=== PATIENT | female | born 1950 | race Caucasian/White ===

== ENCOUNTER 2020-05-22 08:48 | Outpatient (CLI) | payer MEDICARE, BC, SELFPAY ==
--- NOTE | ~2020-05-22 | DEXA_ITS ---
Bone Density Report Name: Lydia Sidhu Age: 70 Sex: Female Ethnicity: White Date of : 1950 Indication: osteopenia; height loss; Referring Provider: Shiloh Hutton Study: Bone densitometry was performed. Exam Date: May 22, 2020 Accession number: [id number] Bone Density: Region BMD T-score Z-score Classification AP Spine (L1-L4) 0.842 -1.9 0.2 Osteopenia Femoral Neck (Left) 0.592 -2.3 -0.6 Osteopenia Total Hip (Left) 0.821 -1.0 0.5 Normal Total Hip Bilateral Avg 0.827 -0.9 0.6 Normal Femoral Neck (Right) 0.621 -2.1 -0.3 Osteopenia Total Hip (Right) 0.832 -0.9 0.6 Normal World Health Organization criteria for BMD impression classify patients as: Normal (T-score at or above -1.0), Osteopenia (T-score between -1.0 and -2.5), or Osteoporosis (T-score at or below -2.5). 10-year Fracture Risk(1): Major Osteoporotic Fracture 12% Hip Fracture 2.6% Reported Risk Factors: [place] (), Neck BMD=0.592, BMI=21.3 (1) FRAX(R) Version 3.08. Fracture probability calculated for an untreated patient. Fracture probability may be lower if the patient has received treatment. Previous Exams: Region Exam Age BMD T-score BMD Change BMD Change Date g/cm2 vs Baseline vs Previous AP Spine(L1-L4) 05/22/2020 70 0.842 -1.9 -0.156(-15.6%) 0.026(3.2%)* 10/22/2017 67 0.816 -2.1 -0.181(-18.2%) -0.109(-11.7%) 03/13/2011 61 0.925 -1.1 -0.073(-7.3%)* 0.034(3.9%)* 01/14/2009 59 0.890 -1.4 -0.107(-10.7%) -0.107(-10.7%) 05/23/2005 55 0.997 -0.5 Total Hip(Left) 05/22/2020 70 0.821 -1.0 -0.190(-18.8%) 0.014(1.8%) 10/22/2017 67 0.807 -1.1 -0.205(-20.2%) -0.050(-5.9%)# 03/13/2011 61 0.857 -0.7 -0.154(-15.3%) -0.062(-6.7%)* 01/14/2009 59 0.919 -0.2 -0.093(-9.2%)* -0.093(-9.2%)* 05/23/2005 55 1.012 0.6 Total Hip(Right) 05/22/2020 70 0.832 -0.9 -0.134(-13.8%) 0.013(1.6%) 10/22/2017 67 0.819 -1.0 -0.147(-15.2%) -0.035(-4.1%)# 03/13/2011 61 0.854 -0.7 -0.111(-11.5%) -0.061(-6.7%)* 01/14/2009 59 0.915 -0.2 -0.050(-5.2%)* -0.050(-5.2%)* 05/23/2005 55 0.965 0.2 *Denotes significance at 95% confidence level, LSC for AP Spine = 0.022 g/cm2, LSC for Total Hip = 0.027 g/cm2 Clinical Information Provided by Patient: Has used the following medications: Vitamin D, Calcium Patient maximum height was 65 Menopause Age: 55 Does not regularly consume dairy products Onset of menses at age 12 Number of children 2
--- NOTE | ~2020-05-22 | MM_ITS ---
EXAMINATION: MM screening [facility] BI w suzi HISTORY: Screening mammogram TECHNIQUE: Craniocaudal and mediolateral oblique 3-D tomosynthesis images were obtained and synthetic 2-D images were generated. CAD analysis was submitted and interpreted. COMPARISON: 01/12/2019, 10/22/2017, 10/15/2016 bilateral digital screening mammogram examinations BREAST PARENCHYMAL COMPOSITION: There are scattered areas of fibroglandular density. FINDINGS: Stable fibroglandular asymmetry. Occasional bilateral benign calcifications. There is no ev idence of suspicious mass, calcification, or architectural distortion to suggest malignancy in either breast. There has been no suspicious interval change. IMPRESSION: 1. No mammographic evidence of malignancy. 2. Recommend routine screening mammography in one year. BI-RADS Category 2: Benign finding(s). Reviewed, dictated and finalized at location A.
== END 2020-05-22 08:49 | disposition home or self-care (01) ==
LOC: ANHIMG 08:53
PROVIDERS: PCP Family Medicine; Visit Provider Physician Assistant
DX: Z12.31 Encounter for screening mammogram for malignant neoplasm of breast (principal); M85.88 Other specified disorders of bone density and structure, other site; M85.852 Other specified disorders of bone density and structure, left thigh; M85.851 Other specified disorders of bone density and structure, right thigh
CPT/HCPCS: 77063; 77067; 77080

== ENCOUNTER 2021-06-10 08:17 | Outpatient (CLI) | payer MEDICARE, BC, SELFPAY ==
--- NOTE | ~2021-06-10 | MM_ITS ---
EXAMINATION: MM screening [facility] BI w suzi HISTORY: Screening mammogram TECHNIQUE: Craniocaudal and mediolateral oblique 3-D tomosynthesis images were obtained and synthetic 2-D images were generated. CAD analysis was submitted and interpreted. COMPARISON: 05/22/2020, 01/12/2019, 10/22/2017 bilateral screening mammogram examinations BREAST PARENCHYMAL COMPOSITION: There are scattered areas of fibroglandular density. FINDINGS: Stable fibroglandular asymmetry, more prominent in the upper outer quadrant of the right br east. There is no evidence of suspicious mass, calcification, or architectural distortion to suggest malignancy in either breast. There has been no suspicious interval change. IMPRESSION: 1. No mammographic evidence of malignancy. 2. Recommend routine screening mammography in one year. BI-RADS Category 2: Benign finding(s). Reviewed, dictated and finalized at location A. TED RADIOLOGY TECHNICIAN
== END 2021-06-10 08:18 | disposition home or self-care (01) ==
LOC: ANHIMG 08:18
PROVIDERS: PCP Family Medicine; Visit Provider Physician Assistant
DX: Z12.31 Encounter for screening mammogram for malignant neoplasm of breast (principal)
CPT/HCPCS: 77063; 77067

== ENCOUNTER 2022-07-24 13:36 | Outpatient (CLI) | payer MEDICARE, BC, SELFPAY ==
--- NOTE | ~2022-07-24 | DEXA_ITS ---
Bone Density Report Name: JEFFRY FAULKNER Age: 72 Sex: Female Ethnicity: White Date of : 1950 Indication: osteopenia; height loss; postmenopausal Referring Provider: JASPAL YIN Study: Bone densitometry was performed. Exam Date: July 24, 2022 Accession number: [id number] Bone Density: Region BMD T-score Z-score Classification AP Spine(L1-L4) 0.833 -1.9 0.3 Osteopenia Femoral Neck (Left) 0.585 -2.4 -0.5 Osteopenia Total Hip (Left) 0.804 -1.1 0.5 Osteopenia Femoral Neck (Right) 0.617 -2.1 -0.2 Osteopenia Total Hip (Right) 0.786 -1.3 0.3 Osteopenia Total Hip Mean 0.795 -1.2 0.4 Osteopenia World Health Organization criteria for BMD impression classify patients as: Normal (T-score at or above -1.0), Osteopenia (T-score between -1.0 and -2.5), or Osteoporosis (T-score at or below -2.5). 10-year Fracture Risk(1): Major Osteoporotic Fracture 12% Hip Fracture 3.2% Reported Risk Factors: [place] (), Neck BMD=0.585, BMI=19.2 (1) FRAX(R) Version 3.08. Fracture probability calculated for an untreated patient. Fracture probability may be lower if the patient has received treatment. Previous Exams: Region Exam Age BMD T-score BMD Change BMD Change Date g/cm2 vs Baseline vs Previous AP Spine (L1-L4) 07/24/2022 72 0.833 -1.9 0.017 (2.1%) -0.008 (-1.0%) 05/22/2020 70 0.842 -1.9 0.026 (3.2%)* 0.026 (3.2%)* 10/22/2017 67 0.816 -2.1 Total Hip(Left) 07/24/2022 72 0.804 -1.1 -0.003 (-0.4%) -0.018 (-2.2%) 05/22/2020 70 0.821 -1.0 0.014 (1.8%) 0.014 (1.8%) 10/22/2017 67 0.807 -1.1 Total Hip(Right) 07/24/2022 72 0.786 -1.3 -0.033 (-4.0%) -0.046 (-5.5%) 05/22/2020 70 0.832 -0.9 0.013 (1.6%) 0.013 (1.6%) 10/22/2017 67 0.819 -1.0 *Denotes significance at 95% confidence level, LSC for AP Spine = 0.022 g/cm2, LSC for Total Hip = 0.027 g/cm2 Clinical Information Provided by Patient: Has used the following medications: Vitamin D, Calcium Patient maximum height was 65 Menopause Age: 55 Drinks caffeinated beverages Onset of menses at age 11 Number of children 2 Missed period for more than 6 months in a row Impression: The patient has low bone mass, based on the Left Femoral Neck T-score. The patient has an estimated ten-year risk of hip fracture of 3.2% and an estimated ten-year risk of major fracture of 12%, based on the WHO FRAX algorithm. The BMD for the To
--- NOTE | ~2022-07-24 | MM_ITS ---
EXAMINATION: MM screening [facility] BI w suzi HISTORY: Screening TECHNIQUE: Craniocaudal and mediolateral oblique 3-D tomosynthesis images were obtained and synthetic 2-D images were generated. CAD analysis was submitted and interpreted. COMPARISON: Comparison to multiple prior studies sequentially, with oldest reviewed study dated 01/2016. BREAST PARENCHYMAL COMPOSITION: There are scattered areas of fibroglandular density. FINDINGS: There is no evidence of suspicious mass, calcification, or architectural distortion to sugg est malignancy in either breast. There has been no suspicious interval change. IMPRESSION: 1. No mammographic evidence of malignancy. 2. Recommend routine screening mammography in one year. BI-RADS Category 1: Negative Reviewed, dictated and finalized at location A. LE DISPLAY PREPARER
== END 2022-07-24 13:37 | disposition home or self-care (01) ==
LOC: ANHIMG 13:37
PROVIDERS: PCP Family Medicine; Visit Provider Physician Assistant
DX: Z12.31 Encounter for screening mammogram for malignant neoplasm of breast (principal); Z78.0 Asymptomatic menopausal state; M85.88 Other specified disorders of bone density and structure, other site; M85.852 Other specified disorders of bone density and structure, left thigh; M85.851 Other specified disorders of bone density and structure, right thigh
CPT/HCPCS: 77063; 77067; 77080

== ENCOUNTER 2023-12-07 08:41 | Outpatient (CLI) | payer MEDICARE, BC, SELFPAY ==
--- NOTE | ~2023-12-07 | MM_ITS ---
EXAMINATION: MM screening [facility] BI w suzi HISTORY: Screening mammogram TECHNIQUE: Craniocaudal and mediolateral oblique 3-D tomosynthesis images were obtained and synthetic 2-D images were generated. CAD analysis was submitted and interpreted. COMPARISON: 07/24/2022, 06/10/2021, 05/22/2020 bilateral screening mammogram examinations BREAST PARENCHYMAL COMPOSITION: There are scattered areas of fibroglandular density. FINDINGS: Stable mild fibroglandular asymmetry. There is no evidence of suspicious mass, calcificatio n, or architectural distortion to suggest malignancy in either breast. There has been no suspicious i nterval change. IMPRESSION: 1. No mammographic evidence of malignancy. 2. Recommend routine screening mammography in one year. BI-RADS Category 1: Negative Reviewed, dictated and finalized at location B.
== END 2023-12-07 08:42 | disposition home or self-care (01) ==
PROVIDERS: PCP Family Medicine; Visit Provider Family Medicine
DX: Z12.31 Encounter for screening mammogram for malignant neoplasm of breast (principal)
CPT/HCPCS: 77063; 77067

== ENCOUNTER 2024-03-22 14:00 | Outpatient (CLI) | payer MEDICARE, BC, SELFPAY ==
[2024-03-22 14:17] LABS: Basophils Percent Auto 1.4 % (0.2-1.2); Eosinophils Absolute Auto 0.1 K/mm3 (0-0.3); Eosinophils Percent Auto 3.2 % (0-4.4); Hematocrit 38.2 % (37.0-47.0); Hemoglobin 12.2 g/dL (12.0-15.0); Lymphocytes Absolute Auto 1.27 K/mm3 (0.9-3.2); Lymphocytes Percent Auto 45.7 % (18.3-44.2); Mean Corpuscular HGB Conc 31.9 g/dl (32-36); Mean Corpuscular Hemoglobin 29.8 pg (26-34); Mean Corpuscular Volume 93.4 fl (80-100); Mean Platelet Volume 9.7 fl (7.4-10.4); Monocytes Absolute Auto 0.4 K/mm3 (0.1-0.6); Monocytes Percent Auto 13.7 % (2.6-8.5); Platelet Count Result 187 k/mm3 (150-375); Red Blood Count 4.09 M/mm3 (4.2-5.4); Red Cell Distribution Width 13.1 % (11.5-14.5); White Blood Count 2.8 K/mm3 (4.5-10.0)
[2024-03-22 19:28] LABS: Iron 75 ug/dL (37-170)
[2024-03-22 19:33] LABS: Alanine Aminotransferase 21 U/L (6-35); Albumin Level 4.3 g/dL (3.5-5.1); Alkaline Phosphatase 63 U/L (38-126); Anion Gap 8 mmol/L (4-12); Aspartate Amino Transferase 43 U/L (14-36); Bilirubin,Total 0.4 mg/dL (0.2-1.3); Blood Urea Nitrogen 17 mg/dL (7-17); Calcium 9.3 mg/dL (8.4-10.2); Carbon Dioxide 30 mmol/L (22-30); Chloride 97 mmol/L (98-107); Estimated Glomerular Filt Rate > 60; Glucose 85 mg/dL (65-110); Potassium 4.5 mmol/L (3.4-5.0); Sodium 135 mmol/L (137-145)
[2024-03-22 19:37] LABS: Percent Iron Saturation 20 % (20-50)
[2024-03-22 20:45] LABS: Folic Acid > 20.0 ng/mL (2.76->20)
[2024-03-24 11:29] LABS: Anti Nuclear Antibody Pattern Nuclear, Homogeneous
[2024-03-25 05:19] LABS: Methylmalonic Acid 200 nmol/L (69-390)
== END 2024-03-22 14:01 | disposition home or self-care (01) ==
LOC: ANHLAB 14:02
PROVIDERS: PCP Family Medicine; Visit Provider Internal Medicine Hematology & Oncology
DX: D70.9 Neutropenia, unspecified (principal); D63.8 Anemia in other chronic diseases classified elsewhere
CPT/HCPCS: 36415; 80053; 82607; 82728; 82746; 83540; 83550; 83921; 85025; 86038; 86039; 88184

== ENCOUNTER 2024-04-06 14:14 | Outpatient (CLI) | payer MEDICARE, BC, SELFPAY ==
--- NOTE | ~2024-04-06 | US_ITS ---
EXAMINATION: US abdomen complete DATE: 04/06/2024 14:53 INDICATION: Neutropenia. TECHNIQUE: Multiple grayscale and Doppler ultrasound images of the abdomen were obtained. COMPARISON: None FINDINGS: The visualized portions of the abdomen, body, and tail of the pancreas are normal. Abdomina l aorta is normal in caliber. Inferior vena cava is normal. The liver is normal without focal lesion. There is normal flow in main portal vein. The gallbladder is normal in size and contains gallstones. No gallbladder wall thickening or sonographic Harris sign. The common duct is normal and measures 3 mm. The kidneys are normal in size. The spleen is normal in size. IMPRESSION: 1. Cholelithiasis. No evidence of acute cholecystitis. Reviewed, dictated and finalized at location A.
== END 2024-04-06 14:15 | disposition home or self-care (01) ==
LOC: ANHIMG 14:18
PROVIDERS: PCP Family Medicine; Visit Provider Internal Medicine Hematology & Oncology
DX: D70.9 Neutropenia, unspecified (principal); K80.20 Calculus of gallbladder without cholecystitis without obstruction
CPT/HCPCS: 76700

== ENCOUNTER 2024-07-27 08:14 | Outpatient (CLI) | payer MEDICARE, BC, SELFPAY ==
--- NOTE | ~2024-07-27 | DEXA_ITS ---
Bone Density Report Name: JEFFRY FAULKNER Age: 74 Sex: Female Ethnicity: White Date of : 1950 Indication: osteopenia; height loss; Referring Provider: ELEANOR SPANN Study: Bone densitometry was performed. Exam Date: July 27, 2024 Accession number: [id number] Bone Density: Region BMD T-score Z-score Classification AP Spine(L1-L4) 0.811 -2.1 0.2 Osteopenia Femoral Neck (Left) 0.608 -2.2 -0.2 Osteopenia Total Hip (Left) 0.738 -1.7 0.0 Osteopenia Femoral Neck (Right) 0.596 -2.3 -0.3 Osteopenia Total Hip (Right) 0.717 -1.8 -0.1 Osteopenia Total Hip Mean 0.727 -1.8 -0.1 Osteopenia World Health Organization criteria for BMD impression classify patients as: Normal (T-score at or above -1.0), Osteopenia (T-score between -1.0 and -2.5), or Osteoporosis (T-score at or below -2.5). 10-year Fracture Risk(1): Major Osteoporotic Fracture 6.7% Hip Fracture 1.9% Reported Risk Factors: [place] (), Neck BMD=0.596, BMI=18.0 (1) FRAX(R) Version 3.08. Fracture probability calculated for an untreated patient. Fracture probability may be lower if the patient has received treatment. Previous Exams: Region Exam Age BMD T-score BMD Change BMD Change Date g/cm2 vs Baseline vs Previous AP Spine (L1-L4) 07/27/2024 74 0.811 -2.1 -0.005 (-0.6%) -0.022 (-2.7%) 07/24/2022 72 0.833 -1.9 0.017 (2.1%) -0.008 (-1.0%) 05/22/2020 70 0.842 -1.9 0.026 (3.2%)* 0.026 (3.2%)* 10/22/2017 67 0.816 -2.1 Total Hip(Left) 07/27/2024 74 0.738 -1.7 -0.069 (-8.6%) -0.066 (-8.2%) 07/24/2022 72 0.804 -1.1 -0.003 (-0.4%) -0.018 (-2.2%) 05/22/2020 70 0.821 -1.0 0.014 (1.8%) 0.014 (1.8%) 10/22/2017 67 0.807 -1.1 Total Hip(Right) 07/27/2024 74 0.717 -1.8 -0.102 (-12.5% -0.069 (-8.8%) 07/24/2022 72 0.786 -1.3 -0.033 (-4.0%) -0.046 (-5.5%) 05/22/2020 70 0.832 -0.9 0.013 (1.6%) 0.013 (1.6%) 10/22/2017 67 0.819 -1.0 *Denotes significance at 95% confidence level, LSC for AP Spine = 0.022 g/cm2, LSC for Total Hip = 0.027 g/cm2 # Denotes dissimilar scan types or analysis methods Clinical Information Provided by Patient: Has used the following medications: Vitamin D, Calcium Patient maximum height was 65 Menopause Age: 55 Drinks caffeinated beverages Onset of menses at age 11 Number of children 2 Missed period for more than 6 months in a row Impression: The patient has low bone mass, based on the Right Femoral Neck T-score. The patient has an estimated ten-year risk of hip fracture of 1.9% and an estimated ten-year risk of major fracture of 6.7%, based on the WHO FRAX algorithm. No significant bone loss was observed. Discussion: BONE DENSITY IS LOW AT ONE OR MORE SKELETAL SITES. This patient's lowest T-score is low at one or more skeletal sites. It meets the World Health Organization's (WHO) criteria for ?low bone mass? (T-score between -1.0 and -2.5). The patient's 10-year risk of fracture as calculated by FRAX is less than the threshold where pharmacological therapy is recommended by the National Osteoporosis Foundation (NOF). However, all treatment decisions require clinical judgment and consideration of individual patient factors, including patient preferences, comorbidities, previous drug use, risk factors not captured in the FRAX model (e.g., frailty, falls, vitamin D deficiency, increased bone turnover, interval significant decline in bone density) and possible under or overestimation of fracture risk by FRAX. The patient should follow a healthful lifestyle (good nutrition with adequate calcium and vitamin D, and appropriate weight-bearing exercise). Follow-Up: Consider repeating this study in 2 to 3 years to reassess this patient's status, or sooner if there is some new clinical indication. Reported by: FAB on 07/27/2024 8:43:00 AM. Reviewed, dictated and finalized at location A.
--- OUTSIDE RECORDS SUMMARY | 2024-08-03 13:11 | XMS_ITS | Encounter Summary ---
Author Organization [facility] Address [address] [place] [address] Care Team Providers Care Travelers' Aid Worker Name Role Phone Unavailable Primary Care Provider Unavailabl e Encounter Details Date Type Department Care Team (Late st Contact Info) Description 03/23/2024 External Device Data STL ABSTRACTION Provider, Abstract NO ADDRESS ON FILE Social History Tobacco Use Types Packs/Day Years Used Date Smoking Tobacco: Never Smokeless Tobacco: Never Alcohol Use Standard Drinks/Week Comments Yes 0 (1 standard drink = 0.6 oz pur e alcohol) Socially Sex and Gender Information Value Date Recorded Sex Assigned at Not on file Gender Identity Not on file Sexual Orientation Not on file documented as of this encounter Plan of Treatment Upcoming Encounters Date Type Department Care Team (Late st Contact Info) Description 08/22/2024 11:00 AM GRAB JACK WORKER Office Visit [facility] Oncology and Hematology - Law [address] [facility] [address] [place] [address] Lionel Braga MD [address] [facility] [address] [place] [address] documented as of this encounter Visit Diagnoses Not on filedocumented in this encounter
--- OUTSIDE RECORDS SUMMARY | 2024-08-03 13:11 | XMS_ITS | Encounter Summary ---
Author Organization [facility] [employer] [facility] Address [address] [place] [address] Care Team Providers Care Disc Ruler Operator Name Role Phone Unavailable Primary Care Provider Unavailabl e Encounter Details Date Type Department Care Team (Late st Contact Info) Description 04/13/2024 3:45 PM CDT Telephone Check Up [facility] [place] Oncology and Hematology - Law [address] [facility] [address] [place] [address] Lionel Braga MD [address] [facility] [address] [place] [address] Neutropenia, unspecified type (Primary Dx) Social History Tobacco Use Types Packs/Day Years Used Date Smoking Tobacco: Never Smokeless Tobacco: Never Alcohol Use Standard Drinks/Week Comments Yes 0 (1 standard drink = 0.6 oz pur e alcohol) Socially Sex and Gender Information Value Date Recorded Sex Assigned at Not on file Gender Identity Not on file Sexual Orientation Not on file documented as of this encounter Progress Notes * Lionel Braga MD - 04/13/2024 5:12 PM CDT HEMATOLOGY / ONCOLOGY PROGRESS NOTE Patient Identification: Name: Lydia Sidhu Age: 74 y.o. Sex: female : 1950 DIAGNOSIS Autoimmune leukopenia CURRENT TREATMENT Expectant TREATMENT HISTORY SUBJECTIVE This is a phone visit with patient. She denies any night sweats fever chills. No signs of infection. No other new complaints. Review of system Constitutional: Patient did not mention fevers, sweats, fatigue, malaise, weight loss HEENT: Patient did not mention sinus congestion, hearing or vision problems Respiratory: Patient did not mention cough, dyspnea, wheeze Cardiovascular: Patient did not mention chest pain, exertional chest pressure/discomfort, nausea, syncope, shortness of breath GI: Patient did not mention constipation, diarrhea, dsyphagia, reflux symptoms, vomiting, melena : Patient did not mention dysuria, frequency, incontinence, urgency Integumentary system: no lymphadenopathy, sweats, flushing Musculoskeletal: Patient not mention: myalgia, arthralgia Neurological: Patient did not mention blurry or disturbed vision, numbness/weakness, dizziness Skin: No lumps, bumps or rashes. Objective: Vital signs in last 24 hours: As per nursing note Exam: This is a phone visit [facility] Labs from March 22 showed creatinine 0.7 B12 762 iron 75 saturation 20 DORON positive flow cytometric analysis showed 4% T-cell large granular lymphocytes likely reactive WBC 2.8 hemoglobin 12.2 platelet 1 87,000 ANC 1000 @IMAGEIMP@ Assessment: Plan: There are no problems to display for this patient. 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 Abdominal ultrasound showed no evidence of hepatosplenomegaly. Iron and B12 normal. No further workup is needed. I will repeat labs again in 4 months. If she develop any evidence of autoimmune disease like arthralgia and rash [facility] Hypertension. Stable on lisinopril. ? TOBACCO COUNSELING She is not a tobacco/nicotine user. 04/13/2024 Lionel Braga MD This encounter was completed via audio-only two way synchronous communication. Patient's identity confirmed yes Patient gave verbal consent to have these services billed to their insurance and expressed understanding that co-insurance and deductible may apply: yes Time spent by the provider delivering the care documented in this encounter 20 minutes. documented in this encounter Plan of Treatment Upcoming Encounters Date Type Department Care Team (Late st Contact Info) Description 08/22/2024 11:00 AM SUPERVISOR SHUTTLE VENEERING Office Visit [facility] [place] Oncology and Hematology - Law [address] [facility] [address] [place] [address] Lionel Braga MD [address] [facility] [address] [place] [address] Scheduled Orders Name Type Priority Associated Diagnoses Orde r Schedule CBC WITH DIFFERENTIAL Lab Stat Neutropenia, unspecified type Expected: 08/03/2024, Expires: 04/13/2025 documented as of this encounter Visit Diagnoses Diagnosis Neutropenia, unspecified type- Primary documented in this encounter
--- OUTSIDE RECORDS SUMMARY | 2024-08-03 13:11 | XMS_ITS | Encounter Summary ---
Author Organization [facility] Address [address] [place] [address] Care Team Providers Care Metal Fitters And Machinists Name Role Phone Unavailable Primary Care Provider Unavailabl e Encounter Details Date Type Department Care Team (Late st Contact Info) Description 05/16/2024 External Device Data STL ABSTRACTION Provider, Abstract [...] st Contact Info) Description 08/22/2024 11:00 AM BLOCK MAKING MACHINE OPERATOR Office Visit [facility] Oncology and Hematology - Law [address] [facility] [address] [place] [address] Lionel Braga MD [address] [facility] [address] [place] [address] documented as of this encounter Visit Diagnoses Not on filedocumented in this encounter
--- OUTSIDE RECORDS SUMMARY | 2024-08-03 13:11 | XMS_ITS | Encounter Summary ---
Author Organization [facility] Address [address] [place] [address] Care Team Providers Care Lion Hunter Name Role Phone Unavailable Primary Care Provider Unavailabl e Encounter Details Date Type Department Care Team (Late st Contact Info) Description 04/11/2024 External Device Data STL ABSTRACTION Provider, Abstract [...] st Contact Info) Description 08/22/2024 11:00 AM FURNACE COMBINATION ANALYST Office Visit [facility] Oncology and Hematology - Law [address] [facility] [address] [place] [address] Lionel Braga MD [address] [facility] [address] [place] [address] documented as of this encounter Visit Diagnoses Not on filedocumented in this encounter
--- OUTSIDE RECORDS SUMMARY | 2024-08-03 13:11 | XMS_ITS | Encounter Summary ---
Author Organization [facility] Address [address] [place] [address] Care Team Providers Care Sound Person Name Role Phone Unavailable Primary Care Provider Unavailabl e Reason for Referral * Radiology Services (Routine) - Closed Specialty Diagnoses / Procedures Referred By Contac t Referred To Contact Diagnoses Neutropenia, unspecified type Procedures US ABDOMEN COMPLETE Lionel Braga MD [address] [employer] [address] [place] [id number] [place] [address] Referral ID Status Reason Start Date Expiration Date V isits Requested Visits Authorized [id number] Closed [facility] CTS 03/22/2024 04/22/2025 1 1 Reason for Visit * Reason Comments Establish Care Encounter Details Date Type Department Care Team (Late st Contact Info) Description 03/22/2024 1:30 PM CDT Office Visit [facility] Oncology and Hematology [address] [place] [address] Lionel Braga MD [address] [employer] [address] [place] [address] Neutropenia, unspecified type (Primary Dx); Anemia, chronic disease Social History Tobacco Use Types Packs/Day Years Used Date Smoking Tobacco: Never Smokeless Tobacco: Never Alcohol Use Standard Drinks/Week Comments Yes 0 (1 standard drink = 0.6 oz pur e alcohol) Socially Sex and Gender Information Value Date Recorded Sex Assigned at Not on file Gender Identity Not on file Sexual Orientation Not on file documented as of this encounter Last Filed Vital Signs Vital Sign Reading Time Taken Comments Blood Pressure 124/77 03/22/2024 1:13 PM CDT Pulse 75 03/22/2024 1:13 PM CDT Temperature 36.4 ??C (97.5 ??F) 03/22/2024 1:13 PM CD T Respiratory Rate 15 03/22/2024 1:13 PM CDT Oxygen Saturation 96% 03/22/2024 1:13 PM CDT Inhaled Oxygen Concentration - - Weight 46.7 kg (103 lb) 03/22/2024 1:13 PM CDT Height 160 cm (5' 3 ) 03/22/2024 1:13 PM CDT Body Mass Index 18.25 03/22/2024 1:13 PM CDT documented in this encounter Progress Notes * Lionel Braga MD - 03/22/2024 2:30 PM CDT Hematology-oncology consult Note Requesting Physician Jelly Wang MD Primary Care Physician No primary care provider on file. Problem list There is no problem list on file for this patient. Previous TREATMENT ? Measurable Disease ? Reason for Visit Lydia Sidhu is a 74 y.o. female who was referred for consultation for leukopenia. History of present illness This is a pleasant 74-year-old female with been in great health except history of hypertension and has been taking lisinopril since October 2023. She has a history of leukopenia for more than10 years ago. Review of the previous labs showed low WBC count in 2020 as well. She denies any history of liver disease and malignancy. She denies any frequent infections. Denies any chest pain or phil rtness of breath. She has lost 20 pound weight in last 2 years duration. Her labs done on February 14 showed WBC count of 2.9 with normal hemoglobin and platelet count. She has no other new complaints. Past Medical History Past Medical History: Diagnosis Date Disorder of thyroid Underactive thyroid 1977 Hx of anorexia nervosa Hypertension Surgical History No past surgical history on file. Medications Current Outpatient Medications Medication Sig Dispense Refill lisinopriL (PRINIVIL) 20 mg tablet Take 20 mg by mouth daily. multivit-min/iron/FA/vit K/lut (CENTRUM SILVER WOMEN ORAL) Take by mouth. CALCIUM CARBONATE ORAL Take 60 mg by mouth daily. CALCIUM CARBONATE-VITAMIN D3 ORAL Take 50 mcg by mouth daily. acetaminophen (TYLENOL) 325 mg tablet Take 325 mg by mouth. No current facility-administered medications for this visit. Allergies Allergies Allergen Reactions Sulfa (Sulfonamide Antibiotics) Rash Immunizations: There is no immunization history on file for this patient. Family History Family History Problem Relation Name Age of Onset No Known Problems Father Heart Disease Mother Diabetes Mother Lung Cancer Brother Heart Disease Brother No Known Problems Brother No Known Problems Brother Heart Disease Sister Diabetes Child No Known Problems Child Social History Social History Tobacco Use Smoking status: Never Smokeless tobacco: Never Substance Use Topics Alcohol use: Yes Comment: Socially Review of Systems Constitutional: Patient did not mention fever; no night sweats; no anorexia; no weight loss; no fatique NEENT: Patient did not mention headache; no change in vision; no change in hearing; no sore throat;no dysphagia Respiratory: Patient did not mention shortness of breath; no pleuritic chest pain; no cough; no hemoptysis Cardiac: Patient did not mention cardiac-like chest pain; no palpitations; no orthopnea; no PND; noDOE Breasts: Patient did not mention tenderness; no masses GI: Patient did not mention abdominal pain; no nausea; no vomiting; no diarrhea; no hematochezia; no melena : Patient did not mention dysuria; no frequency; no hesitancy; no hematuria DIRECTOR OF ADMISSIONS: Musculosketetal: Patient did not mention bone pain; no arthralgia; no joint swelling; no myalgia; Skin: Patient did not mention pruritis; no rash; no petechiae; no ecchymoses Endocrine: Patient did not mention polydipsia; no polyuria; no unusual weight gain Neuro: Patient did not mention headache; no change in vision; no sensory changes; no muscle weakness; no confusion; no seizures Psych: Patient did not mention anxiety; no depression; Physical Exam Vitals: As per nursing note Constitutional: Well developed, well nourished, no acute distress, non-toxic appearance Teeth and gum. No signs of infection or swelling. Eyes: PERRL, conjunctiva normal HEENT: Atraumatic, external ears normal, nose normal, oropharynx moist, no pharyngeal exudates. no sinus tenderness Neck- normal range of motion, no tenderness, supple Respiratory: No respiratory distress, normal breath sounds, no rales, no wheezing Cardiovascular: Normal rate, normal rhythm, no murmurs, no gallops, no rubs GI: Soft, nondistended, normal bowel sounds, nontender, no splenomegaly, no hepatomegaly, no mass, no rebound, no guarding : No costovertebral angle tenderness Musculoskeletal: No edema, no tenderness, no deformities. Back- no tenderness Integument: Well hydrated, no rash, Digits and nails inspection normal Lymphatic: No lymphadenopathy noted Neurologic: Alert & oriented x 3, CN 2-12 normal, normal motor function, normal sensory function, no focal deficits noted Psychiatric: Speech and behavior appropriate ? labs No results found for this or any previous visit (from the past 24 hour(s)). Labs from February 14 showed WBC 2.9 hemoglobin 12.3 MCV 92.7 platelet count 174,000 Pathology ? Imaging & Other Studies Performance Status? Assessment / Plan: ? Leukopenia. Patient is a pleasant 74-year-old female who has been in great health except history of hypertension and has been taking lisinopril since November 2023. She has a history of leukopenia for more than 10 years duration. She denies any frequent infections. She has lost 20 pound weight in last 2 years duration. She has no previous history of liver disease and malignancy. I have discussed the differential diagnosis of leukopenia that includes nutritional deficiencies, autoimmune leukopenia, drug-induced leukopenia, liver and spleen disorders, and bone marrow disorders. There is also possibility of benign essential leukopenia. She is currently asymptomatic. I will order the workup that will include DORON, CBC, CMP, iron profile, B12 level and abdominal ultrasound. I will also check flow cytometric analysis for leukemia. I have answered all the questions to patient's satisfaction. Hypertension. Patient is on lisinopril. Thank you very much for allowing me to participate in Lydia Sidhu's evaluation and management. Please feel free to contact if I can be of any further assistance in your patient???s care requiring hematology or oncology evaluation. Sincerely, ? ? Lionel Braga M.D. cell TOBACCO COUNSELING She is not a tobacco/nicotine user. Lionel Braga MD ,03/22/2024 2:30 PM ? Total time spent 60 minutes, two third of the total time spent counseling patient [id number]. CC:?Jelly Wang MD documented in this encounter Plan of Treatment Upcoming Encounters Date Type Department Care Team (Late st Contact Info) Description 08/22/2024 11:00 AM PLOW MECHANIC Office Visit [facility] Oncology and Hematology - Law [address] [facility] [address] [place] [address] Lionel Braga MD [address] [facility] [address] [place] [address] Scheduled Orders Name Type Priority Associated Diagnoses Orde r Schedule DORON SCREEN W/REFLEX Lab Routine Neutropenia, unspecified type Expected: 03/22/2024, Expires: 03/22/2025 CBC WITH DIFFERENTIAL Lab Stat Anemia, chronic disease Expected: 03/22/2024, Expires: 03/22/2025 COMPREHENSIVE METABOLIC PANEL Lab Stat Anemia, chronic disease Expected: 03/22/2024, Expires: 03/22/2025 FERRITIN Lab Routine Anemia, chronic disease Expected: 03/22/2024, Expires: 03/22/2025 FLOW CYTOMETRY PANEL Lab Routine Neutropenia, unspecified type Expected: 03/22/2024, Expires: 03/22/2025 IRON, TIBC, AND PERCENT SATURATION Lab Routine Anemia, chronic disease Expected: 03/22/2024, Expires: 03/22/2025 METHYLMALONIC ACID Lab Routine Anemia, chronic disease Expected: 03/22/2024, Expires: 03/22/2025 VITAMIN B12 AND FOLATE Lab Routine Anemia, chronic disease Expected: 03/22/2024, Expires: 03/22/2025 US ABDOMEN COMPLETE Imaging Routine Neutropenia, unspecified type 1 Occurrences starting 03/22/2024 until 03/22/2025 documented as of this encounter Visit Diagnoses Diagnosis Neutropenia, unspecified type- Primary Anemia, chronic disease Anemia of other chronic disease documented in this encounter
--- OUTSIDE RECORDS SUMMARY | 2024-08-03 13:11 | XMS_ITS | Clinical Summary ---
Author Organization [facility] Address [address] [place] [address] Care Team Providers Care Wardrobe Specialist Name Role Phone Unavailable Primary Care Provider Unavailabl e Allergies Active Allergy Reactions Criticality Noted Date Comments Sulfa (Sulfonamide Antibiotics) Rash Low 03/03 Medications Medication Sig Dispensed Refills Start Date End Date Status lisinopriL (PRINIVIL) 20 mg tablet Take 20 mg by mouth daily. Active multivit-min/iron/FA/vi t K/lut (CENTRUM SILVER WOMEN ORAL) Take by mouth. Active CALCIUM CARBONATE ORAL Take 60 mg by mouth daily. Active CALCIUM CARBONATE-VITAMIN D3 ORAL Take 50 mcg by mouth daily. Active acetaminophen (TYLENOL) 325 mg tablet Take 325 mg by mouth. Active Active Problems No known active problems Encounters Date Type Department Care Team Description 05/31/2024 External Device Data STL ABSTRACTION Provider, Abstract 05/16/2024 External Device Data STL ABSTRACTION Provider, Abstract from Last 3 Months Family History Medical History Relation Name Comments Heart Disease Brother 1 Lung Cancer Brother 1 No Known Problems Brother 2 No Known Problems Brother 3 Diabetes Child 1 No Known Problems Child 2 No Known Problems Father Diabetes Mother Heart Disease Mother Heart Disease Sister Relation Name Status Comments Brother 1 Brother 2 Alive Brother 3 Alive Child 1 Alive Child 2 Alive Father Mother Sister Alive Social History Tobacco Use Types Packs/Day Years Used Date Smoking Tobacco: Never Smokeless Tobacco: Never Alcohol Use Standard Drinks/Week Comments Yes 0 (1 standard drink = 0.6 oz pur e alcohol) Socially Sex and Gender Information Value Date Recorded Sex Assigned at Not on file Gender Identity Not on file Sexual Orientation Not on file Last Filed Vital Signs Vital Sign Reading [...] Mass Index 18.25 03/22/2024 1:13 PM CDT Plan of Treatment Upcoming Encounters Date Type Department Care Team (Late st Contact Info) Description 08/22/2024 11:00 AM IDENTIFIER HORSE Office Visit [facility] Oncology and Hematology [facility] [address] [facility] [address] [place] [address] Lionel Braga MD [address] [facility] [address] [place] [address] Health Maintenance Due Date Last Done Comments DTAP/TDAP/TD VACCINES (1 - Tdap) 1970 BREAST CANCER SCREENING 1991 COLORECTAL SCREENING 01/02/1996 Colorectal Cancer Screening 01/02/1996 FIT-DNA Q 3 years 01/02/1996 FIT/FOBT Q 1 year 01/02/1996 Flex Sig/CT Colonography Q 5 years 01/02/1996 ZOSTER VACCINE (1 of 2) 2001 OSTEOPOROSIS SCREENING 01/02/2016 PNEUMOCOCCAL VACCINE 65+ YEARS (1 of 1 - PCV) 01/02/20 16 INFLUENZA VACCINE (#1) 2024 RSV VACCINE (60+ or ) (1 - 1-dose 75+ series) 2026
--- OUTSIDE RECORDS SUMMARY | 2024-08-03 13:11 | XMS_ITS | Encounter Summary ---
Author Organization [facility] [employer] Juan [facility] Address [address] [place] [address] Care Team Providers Care Credit Administration Officer Name Role Phone Unavailable Primary Care Provider Unavailabl e Encounter Details Date Type Department Care Team (Late Contact Info) Description 03/28/2024 Orders Only [facility] Oncology and Hematology - Law [address] [place] [address] Lionel Braga MD [facility] [employer] [address] [place] [address] Social History Tobacco Use Types Packs/Day Years [...] st Contact Info) Description 08/22/2024 11:00 AM CONTINUOUS DRYOUT OPERATOR HELPER Office Visit [facility] Oncology and Hematology - Law [address] [place] [address] Lionel Braga MD [address] [employer] [address] [place] [address] documented as of this encounter Procedures Procedure Name Priority Date/Time Associated Diagnosis Comments METHYLMALONIC ACID Routine 03/22/2024 7:31 AM CDT documented in this encounter Results * METHYLMALONIC ACID (03/22/2024 7:31 AM CDT) Blood Lionel Braga MD CHEMISTRY ORDERABLES documented in this encounter Visit Diagnoses Not on filedocumented in this encounter
--- OUTSIDE RECORDS SUMMARY | 2024-08-03 13:11 | XMS_ITS | Encounter Summary ---
Author Organization [facility] Address [address] [place] [address] Care Team Providers Care Metallographic Technician Name Role Phone Unavailable Primary Care Provider [...] st Contact Info) Description 08/22/2024 11:00 AM TRANSPLANT CASE MANAGER Office Visit [facility] Oncology and Hematology - Law [address] [facility] [address] [place] [address] Lionel Braga MD [address] [facility] [address] [place] [address] documented as of this encounter Visit Diagnoses Not on filedocumented in this encounter
--- OUTSIDE RECORDS SUMMARY | 2024-08-03 13:11 | XMS_ITS | Encounter Summary ---
Author Organization [facility] Address [address] [place] [address] Care Team Providers Care Bias Machine Operator Helper Name Role Phone Unavailable Primary Care Provider Unavailabl e Encounter Details Date Type Department Care Team (Late st Contact Info) Description 03/29/2024 External Device Data STL ABSTRACTION Provider, Abstract [...] st Contact Info) Description 08/22/2024 11:00 AM ASSISTANT NURSE MANAGER Office Visit [facility] Oncology and Hematology - Law [address] [facility] [address] [place] [address] Lionel Braga MD [address] [facility] [address] [place] [address] documented as of this encounter Visit Diagnoses Not on filedocumented in this encounter
--- OUTSIDE RECORDS SUMMARY | 2024-08-03 13:11 | XMS_ITS | Encounter Summary ---
Author Organization [facility] Address [address] [place] [address] Care Team Providers Care Mercantile Agent Name Role Phone Unavailable Primary Care Provider Unavailabl e Encounter Details Date Type Department Care Team (Late Contact Info) Description 04/07/[address] [facility] Oncology and Hematology - Law [address] [place] [address] Lionel Braga MD [facility] [employer] [address] [place] [address] Social History Tobacco Use Types Packs/Day [...] st Contact Info) Description 08/22/2024 11:00 AM CORPORATE COMMUNICATIONS MANAGER Office Visit [facility] Oncology and Hematology - Law [address] [place] [address] Lionel Braga MD [facility] [employer] [address] [place] [address] documented as of this encounter Procedures Procedure Name Priority Date/Time Associated Diagnosis Comments US ABDOMEN COMPLETE Routine 04/06/2024 10:26 AM CDT documented in this encounter Results * US ABDOMEN COMPLETE (04/06/2024 10:26 AM CDT) Anatomical Region Laterality Modality Abdomen Other Lionel Braga MD ORDERABLES documented in this encounter Visit Diagnoses Not on filedocumented in this encounter
--- OUTSIDE RECORDS SUMMARY | 2024-08-03 13:11 | XMS_ITS | Encounter Summary ---
Author Organization [facility] Address [address] [place] [address] Care Team Providers Care Pet House Sitter Name Role Phone Unavailable Primary Care Provider [...] st Contact Info) Description 08/22/2024 11:00 AM DIGITAL IMAGING TECHNICIAN Office Visit [facility] Oncology and Hematology - Law [address] [facility] [address] [place] [address] Lionel Braga MD [address] [facility] [address] [place] [address] documented as of this encounter Visit Diagnoses Not on filedocumented in this encounter
--- OUTSIDE RECORDS SUMMARY | 2024-08-03 13:11 | XMS_ITS | Encounter Summary ---
Author Organization [facility] [facility] Address [address] [place] [address] Care Team Providers Care Disposal Worker Name Role Phone Unavailable Primary Care Provider Unavailabl e Encounter Details Date Type Department Care Team (Late Contact Info) Description 03/27/[address] [facility] Oncology and Hematology - Law [address] [place] [address] Lionel Braag MD [facility] [employer] [address] [place] [address] Social History Tobacco Use Types Packs/Day [...] st Contact Info) Description 08/22/2024 11:00 AM CROP PULLER Office Visit [facility] Oncology and Hematology - Law [address] [place] [address] Lionel Braga MD [address] [employer] [address] [place] [address] documented as of this encounter Procedures Procedure Name Priority Date/Time Associated Diagnosis Comments FLOW CYTOMETRY REPORT Routine 03/23/2024 3:53 PM CDT DORON PANEL Routine 03/22/2024 3:06 PM CDT COMPREHENSIVE METABOLIC PANEL Routine 03/22/2024 8:12 AM CDT documented in this encounter Results * FLOW CYTOMETRY REPORT (03/23/2024 3:53 PM CDT) Lionel Braga MD PATHOLOGY/CYTOLOGY O RDERABLES * DROON PANEL (03/22/2024 3:06 PM CDT) Blood Lionel Braga MD CHEMISTRY ORDERABLES * COMPREHENSIVE METABOLIC PANEL (03/22/2024 8:12 AM CDT) Blood Lionel Braga MD CHEMISTRY ORDERABLES documented in this encounter Visit Diagnoses Not on filedocumented in this encounter
--- OUTSIDE RECORDS SUMMARY | 2024-08-03 13:11 | XMS_ITS | Encounter Summary ---
Author Organization [facility] Address [address] [place] [address] Care Team Providers Care Laboratory Technical Specialist Name Role Phone Unavailable Primary Care Provider Unavailabl e Encounter Details Date Type Department Care Team (Late st Contact Info) Description 05/31/2024 External Device Data STL ABSTRACTION [...] st Contact Info) Description 08/22/2024 11:00 AM EMERGING SOLUTIONS EXECUTIVE Office Visit [facility] Oncology and Hematology - Law [address] [facility] [address] [place] [address] Lionel Braga MD [address] [facility] [address] [place] [address] documented as of this encounter Visit Diagnoses Not on filedocumented in this encounter
--- OUTSIDE RECORDS SUMMARY | 2024-08-03 13:11 | XMS_ITS | Encounter Summary ---
Author Organization [facility] Address [address] [place] [address] Care Team Providers Care Career Agent Name Role Phone Unavailable Primary Care Provider Unavailabl e Encounter Details Date Type Department Care Team (Late st Contact Info) Description 03/28/2024 External Device Data STL ABSTRACTION Provider, Abstract [...] st Contact Info) Description 08/22/2024 11:00 AM CONCRETE FLOATER Office Visit [facility] Oncology and Hematology - Law [address] [facility] [address] [place] [address] Lionel Braga MD [address] [facility] [address] [place] [address] documented as of this encounter Visit Diagnoses Not on filedocumented in this encounter
--- OUTSIDE RECORDS SUMMARY | 2024-08-03 13:11 | XMS_ITS | Encounter Summary ---
Author Organization [facility] Address [address] [place] [address] Care Team Providers Care Counter Server Name Role Phone Unavailable Primary Care Provider [...] st Contact Info) Description 08/22/2024 11:00 AM IRRIGATOR SPRINKLING SYSTEM [facility] Visit [facility] Oncology and Hematology - Law [address] [facility] [address] [place] [address] Lionel Braga MD [address] [facility] [address] [place] [address] documented as of this encounter Visit Diagnoses Not on filedocumented in this encounter
== END 2024-07-27 08:15 | disposition home or self-care (01) ==
LOC: ANHIMG 08:16
PROVIDERS: PCP Nurse Practitioner; Visit Provider Nurse Practitioner
DX: M85.89 Other specified disorders of bone density and structure, multiple sites (principal)
CPT/HCPCS: 77080

== ENCOUNTER 2024-08-22 10:41 | Outpatient (CLI) | payer MEDICARE, BC, SELFPAY ==
[2024-08-22 10:51] LABS: Eosinophils Absolute Auto 0.1 K/mm3 (0-0.3); Hematocrit 39.1 % (37.0-47.0); Hemoglobin 12.7 g/dL (12.0-15.0); Lymphocytes Percent Auto 34.2 % (18.3-44.2); Mean Corpuscular HGB Conc 32.5 g/dl (32-36); Mean Corpuscular Hemoglobin 30.3 pg (26-34); Mean Corpuscular Volume 93.3 fl (80-100); Mean Platelet Volume 9.3 fl (7.4-10.4); Monocytes Absolute Auto 0.4 K/mm3 (0.1-0.6); Monocytes Percent Auto 10.5 % (2.6-8.5); Neutrophils Absolute Auto 2.1 K/mm3 (1.3-6.7); Neutrophils Percent Auto 52.3 % (45.5-73.1); Platelet Count Result 221 k/mm3 (150-375); Red Blood Count 4.19 M/mm3 (4.2-5.4); White Blood Count 4.1 K/mm3 (4.5-10.0)
--- OUTSIDE RECORDS SUMMARY | 2024-08-24 17:32 | XMS_ITS | Encounter Summary ---
Author Organization [facility] [employer] [facility] Address [address] [place] [address] Care Team Providers Care Look Out Tower Fire Watcher Name Role Phone Unavailable Primary Care Provider Unavailabl e Reason for Visit * Reason Comments Follow Up Encounter Details Date Type Department Care Team (Late st Contact Info) Description 08/22/2024 11:00 AM SERVICE PROVIDER Office Visit [facility] Oncology and Hematology - [place] [address] [facility] [address] [place] [address] Lionel Braga MD [address] [facility] [address] [place] [address] Neutropenia, unspecified type (Primary Dx) Social History Tobacco Use Types Packs/Day Years Used Date Smoking Tobacco: Never Smokeless Tobacco: Never Tobacco Cessation:Counseling Given: Not Answered Alcohol Use Standard Drinks/Week Comments Yes 0 (1 standard drink = 0.6 oz pur e alcohol) Socially Comments Unknown Sex and Gender Information Value Date Recorded Sex Assigned at Not on file Legal Sex Female 10:53 AM CDT Gender Identity Not on file Sexual Orientation Not on file documented as of this encounter Last Filed Vital Signs Vital Sign Reading Time Taken Comments Blood Pressure 141/83 08/22/2024 10:56 AM SERVICE PROVIDER Pulse 69 08/22/2024 10:56 AM SERVICE PROVIDER Temperature 35.9 ??C (96.7 ??F) 08/22/2024 10:[address] Respiratory Rate 16 08/22/2024 10:56 AM SERVICE PROVIDER Oxygen Saturation 96% 08/22/2024 10:56 AM SERVICE PROVIDER Inhaled Oxygen Concentration - - Weight 47.6 kg (105 lb) 08/22/2024 10:56 AM SERVICE PROVIDER Height - - Body Mass Index 18.6 03/22/2024 1:13 PM CDT documented in this encounter Progress Notes * Lionel Braga MD - 08/22/2024 11:01 AM CST HEMATOLOGY / ONCOLOGY PROGRESS NOTE Patient Identification: Name: Lydia Sidhu Age: 74 y.o. Sex: female : 1950 DIAGNOSIS Autoimmune leukopenia CURRENT TREATMENT Expectant TREATMENT HISTORY SUBJECTIVE Patient came to the office for follow-up visit. She had COVID infection on July 14 and then upper respiratory/viral infection on August 08 that she has recovered well. She denies any night sweatsfever chills. No new lumps of the lymphadenopathy. She has gained 3 pound weight. No other new complaints. Review of system Constitutional: Patient did not mention fevers, sweats, denies any tiredness and fatigue, 3 pound weight gain HEENT: Patient did not mention sinus congestion, [...] dizziness Skin: No lumps, bumps or rashes. 12 point review of system was reviewed Objective: Vital signs in last 24 hours: As per nursing note Exam: HEENT: Atraumatic, external ears normal, nose normal, [...] normal sensory function, no focal deficits noted Exam as above PATH LABS Labs from March 22 showed creatinine 0.7 B12 762 iron 75 saturation 20 DORON positive flow cytometric analysis showed 4% T-cell large granular lymphocytes likely reactive WBC 2.8 hemoglobin 12.2 platelet 1 87,000 ANC 1000 Lab from August 22 showed WBC 4.1 hemoglobin 12.7 platelet 221,000 @IMAGEIMP@ Assessment: Plan: There are no active problems to display for this patient. 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 Abdominal ultrasound showed no evidence of hepatosplenomegaly. Iron and B12 normal. Labs noted. WBC count has improved. She had COVID infection in July and then viral infection onJan 7 that she has recovered from. We will continue to observe and see her back in 6 months. Hypertension. Stable. 08/22/2024 Lionel Braga MD ICE PROVIDER documented in this encounter Plan of Treatment Upcoming Encounters Date Type Department Care Team (Late st Contact Info) Description 02/20/2025 11:00 AM CDT Office Visit [facility] Oncology and Hematology - [place] [address] [facility] [address] [place] [address] Lionel Braga MD [address] [facility] [address] [place] [address] Scheduled Orders Name Type Priority Associated Diagnoses Orde r Schedule CBC WITH DIFFERENTIAL Lab Stat Neutropenia, unspecified type Expected: 02/19/2025, Expires: 08/22/2025 documented as of this encounter Visit Diagnoses Diagnosis Neutropenia, unspecified type- Primary documented in this encounter
--- OUTSIDE RECORDS SUMMARY | 2024-08-24 17:32 | XMS_ITS | Clinical Summary ---
Author Organization [facility] Pilar rodriguez Yokastaashly Address [address] [place] [address] Care Team Providers Care Candy Maker Helper Name Role Phone Unavailable Primary Care Provider Unavailabl e Allergies Active Allergy Reactions Criticality Noted Date Comments Sulfa (Sulfonamide Antibiotics) Rash Low 03/03 Medications lisinopriL (PRINIVIL) 20 mg tablet Take 20 mg by mouth daily. Active multivit-min/iro n/FA/vit K/lut (CENTRUM SILVER WOMEN ORAL) Take by mouth. Active CALCIUM CARBONATE ORAL Take 60 mg by mouth daily. Active CALCIUM CARBONATE-VITAMI N D3 ORAL Take 50 mcg by mouth daily. Active acetaminophen (TYLENOL) 325 mg tablet Take 325 mg by mouth. Active Active Problems No known active problems Encounters Date Type Department Care Team Description 08/23/2024 Orders Only [facility] Oncology and Hematology [facility] [address] [place] [address] Lionel Braga MD 08/22/2024 11:00 AM CHRONIC MANAGER Office Visit [facility] Oncology and Hematology [facility] [address] [place] [address] Lionel Braga MD Neutropenia, unspecified type (Primary Dx) 08/22/2024 External Device Data STL ABSTRACTION Provider, Abstract 08/16/2024 External Device Data STL ABSTRACTION Provider, Abstract 05/31/2024 External Device Data STL ABSTRACTION Provider, [...] Comments Blood Pressure 141/83 08/22/2024 10:56 AM CHRONIC MANAGER Pulse 69 08/22/2024 10:56 AM CHRONIC MANAGER Temperature 35.9 ??C (96.7 ??F) 08/22/2024 10:[address] Respiratory Rate 16 08/22/2024 10:56 AM CHRONIC MANAGER Oxygen Saturation 96% 08/22/2024 10:56 AM CHRONIC MANAGER Inhaled Oxygen Concentration - - Weight 47.6 kg (105 lb) 08/22/2024 10:56 AM CHRONIC MANAGER Height 160 cm (5' 3 ) 03/22/2024 1:13 PM CDT Body Mass Index 18.6 03/22/2024 1:13 PM CDT Plan of Treatment Upcoming Encounters Date Type Department Care Team (Late st Contact Info) Description 02/20/2025 11:00 AM CDT Office Visit [facility] Oncology and Hematology - [place] [address] [facility] [address] [place] [address] Lionel Braga MD [address] [facility] [address] [place] [address] Health Maintenance Due Date Last Done Comments DTAP/TDAP/TD VACCINES (1 - Tdap) 1970 Traditional Medicare (ACO) A nnual Wellness Visit 1970 BREAST CANCER SCREENING 1991 COLORECTAL SCREENING 01/02/1996 Colorectal Cancer Screening 01/02/1996 FIT-DNA Q 3 years 01/02/1996 FIT/FOBT Q 1 year 01/02/1996 Flex Sig/CT Colonography Q 5 years 01/02/1996 PNEUMOCOCCAL VACCINE 65+ YEA RS (1 of 1 - PCV) 2001 ZOSTER VACCINE (1 of 2) 2001 INFLUENZA VACCINE (#1) 2024 RSV VACCINE (60+ or ) (1 - 1-dose 75+ series) 2026 OSTEOPOROSIS SCREENING Completed 07/24/2022, 2019 Procedures Procedure Name Priority Date/Time Associated Diagnosis Comments CBC WITH DIFFERENTIAL Routine 08/22/2024 2:32 PM CHRONIC MANAGER from Last 3 Months Results * CBC WITH DIFFERENTIAL (08/22/2024 2:32 PM CHRONIC MANAGER) Blood us Lionel Braga MD HEMATOLOGY ORDERABLES Final Res ult from Last 3 Months Insurance MEDICARE PART A AND B [facility]
== END 2024-08-22 10:42 | disposition home or self-care (01) ==
LOC: ANHLAB 10:42
PROVIDERS: PCP Nurse Practitioner; Visit Provider Internal Medicine Hematology & Oncology
DX: D70.9 Neutropenia, unspecified (principal)
CPT/HCPCS: 36415; 85025

== ENCOUNTER 2024-12-21 14:28 | Outpatient (CLI) | payer MEDICARE, BC, SELFPAY ==
--- NOTE | ~2024-12-21 | MM_ITS ---
EXAMINATION: MM screening atul BI w suzi HISTORY: Screening TECHNIQUE: Craniocaudal and mediolateral oblique 3-D tomosynthesis images were obtained and synthetic 2-D images were generated. CAD analysis was submitted and interpreted. COMPARISON: Comparison to multiple prior studies sequentially, with oldest reviewed study dated 10/22. BREAST PARENCHYMAL COMPOSITION: Not dense: There are scattered areas of fibroglandular density. FINDINGS: There is no evidence of suspicious mass, calcification, or architectural distortion to sugg est malignancy in either breast. There has been no suspicious interval change. IMPRESSION: 1. No mammographic evidence of malignancy. 2. Recommend routine screening mammography in one year. BI-RADS Category 1: Negative Reviewed, dictated and finalized at location B.
--- OUTSIDE RECORDS SUMMARY | 2024-12-21 14:31 | XMS_ITS | Clinical Summary ---
Author Organization [facility] Address [address] [facility] [place] [address] Care Team Providers Care Parker Name Role Phone Unavailable Primary Care Provider [...] Encounters Date Type Department Care Team Description 12/19/2024 External Device Data STL ABSTRACTION Provider, Abstract 10/18/2024 External Device Data STL ABSTRACTION Provider, Abstract 10/07/2024 External Device Data STL ABSTRACTION Provider, Abstract 10/06/2024 External Device Data STL ABSTRACTION Provider, Abstract 10/03/2024 External Device Data STL ABSTRACTION Provider, Abstract [...] Comments Blood Pressure 141/83 08/22/2024 10:56 AM RANGE ECOLOGIST Pulse 69 08/22/2024 10:56 AM RANGE ECOLOGIST Temperature 35.9 C (96.7 F) 08/22/2024 10:56 AM RANGE ECOLOGIST Respiratory Rate 16 08/22/2024 10:56 AM RANGE ECOLOGIST Oxygen Saturation 96% 08/22/2024 10:56 AM RANGE ECOLOGIST Inhaled Oxygen Concentration - - Weight 47.6 kg (105 lb) 08/22/2024 10:56 AM RANGE ECOLOGIST Height 160 cm (5' 3 ) 03/22/2024 1:13 PM CDT Body Mass Index 18.6 03/22/2024 1:13 PM CDT Plan of Treatment Upcoming Encounters Date Type Department Care Team (Late st Contact Info) Description 02/20/2025 11:00 AM CDT Office Visit [facility] Oncology and Hematology - [place] [address] [place] [address] [facility] [address] [place] [address] Lionel Braga MD [address] [facility] [address] [place] [address] Health Maintenance Due Date Last Done Comments DTAP/TDAP/TD VACCINES (1 - Tdap) 1970 COLORECTAL SCREENING 01/02/1996 Colorectal Cancer Screening 01/02/1996 FIT-DNA Q 3 years 01/02/1996 FIT/FOBT Q 1 year 01/02/1996 Flex Sig/CT Colonography Q 5 years 01/02/1996 PNEUMOCOCCAL VACCINE 50+ YEA RS (1 of 1 - PCV) 2001 ZOSTER VACCINE (1 of 2) 2001 INFLUENZA VACCINE (#1) 2024 BREAST CANCER SCREENING 12/06/2024 12/07/19 24, 12/07/2023, 07/24/2022, Additional history exists RSV VACCINE (60+ or ) (1 - 1-dose 75+ series) 2026 OSTEOPOROSIS SCREENING 07/24/2027 07/24/2022, 2019 Insurance MEDICARE PART A AND B [facility]
--- OUTSIDE RECORDS SUMMARY | 2024-12-21 14:31 | XMS_ITS | Encounter Summary ---
Author Organization [facility] Address [address] [place] [address] Care Team Providers Care Business Transformation Consultant Name Role Phone Unavailable Primary Care Provider Unavailabl e Encounter Details Date Type Department Care Team (Late st Contact Info) Description 12/19/2024 External Device Data STL ABSTRACTION [...] Description 02/20/2025 11:00 AM CDT Office Visit [facility] Oncology and Hematology - [place] [address] [facility] [address] [place] [address] Lionel Braga MD [address] [facility] [address] [place] [address] documented as of this encounter Visit Diagnoses Not on filedocumented in this encounter
== END 2024-12-21 14:29 | disposition home or self-care (01) ==
LOC: ANHIMG 14:30
PROVIDERS: PCP Family Medicine; Visit Provider Nurse Practitioner
DX: Z12.31 Encounter for screening mammogram for malignant neoplasm of breast (principal)
CPT/HCPCS: 77063; 77067